=== PATIENT | male | born 1995 | race Two or more races ===

== ENCOUNTER 2025-04-24 16:48 | Emergency (ER) | payer OTHER, SELFPAY ==
[2025-04-24 17:00] VITALS: BP 163/95; PULSE 87; RESP 18; TEMP 36.9; O2SAT 97; BMI 40.8
--- NOTE | 2025-04-24 17:03 | XR_ITS ---
EXAMINATION: Lumbar spine 3 views TECHNIQUE: AP lateral: Lateral lower lumbar spine 3 views Date and time: April 24, 2025, 1723 hours INDICATIONS: Lifting injury to the lower back at work today with back pain. FINDINGS: Satisfactory alignment lumbar vertebral bodies No lumbar fracture Mild disc narrowing L5-S1 No spondylolisthesis IMPRESSION: No lumbar fracture Mild disc narrowing L5-S1
--- NOTE | 2025-04-24 17:04 | EDNOTE_ITS ---
ED Back Injury Pain RME/HPI General Chief Complaint: Back Pain/Injury Stated Complaint: LOWER BACK PAIN, WORK INJURY TODAY Time Seen by Provider: 04/24/25 17:02 Arrival date/time: 04/24/25 16:48 30-year-old male patient came in for evaluation regarding low back pain. Patient was working, picking up a box, and suddenly felt a snap in his back resulting in the pain, described as sharp pain, severity moderate. Patient denies any incontinence. Both bladder and bowel. Patient is ambulatory. Denies any weakness of bilateral lower extremities. Denies any similar episode in the past. No medication was taken prior to ER visit Related Data Previous Rx's ?Medication ?Instructions ?Recorded cephalexin 500 mg capsule (Keflex) 500 mg PO BID #14 c aps 11/02/19 ibuprofen 800 mg tablet 800 mg PO TID PRN pain #30 t abs 11/02/19 cyclobenzaprine 10 mg tablet 10 mg PO TID PRN muscle s pasm #30 04/24/25 tabs ibuprofen 800 mg tablet 800 mg PO TID PRN pain #30 t abs 04/24/25 ketorolac 10 mg tablet 10 mg PO Q8H PRN pain 5 days #20 04/24/25 tabs Allergies Allergy/AdvReac Type Severity Reaction Status Date / Time No Known Allergies Allergy Verified 04/24/25 16:50 Review of Systems Review of Systems Narrative Review of Systems: Review of system reviewed and within normal limits except mentioned in HPI ED Exam Narrative Physical exam: VITAL SIGNS: Reviewed. GENERAL APPEARANCE: Alert and interactive, follows commands, no acute distress, HEAD AND FACE: Non-traumatic. ENT: PERRL, pink conjunctivitis, eyelid no trauma, Mucous membrane moist. NECK: Supple, nontender, no nuchal rigidity. CHEST: No tenderness, no crepitus, no paradoxical movement, no retractions. LUNGS: Clear, well ventilated, symmetric, no rales, no wheezing, no ronchi, no stridor, good breath sounds bilaterally. HEART: Regular rate, regular rhythm, no murmur, no gallops. ABDOMEN: Soft, positive bowel sounds, nondistended, no guarding, nontender, no rebound, no masses, RECTAL: Deferred. GENITAL: Deferred. NEUROLOGICAL: Gross motor function intact sensory function intact, Appropriate for age. MUSCULOSKELETAL: low back tenderness, no midline tenderness, full range of motion. EXTREMITIES: Nontender, full range of motion. SKIN: Color pink, dry, no rash, no lacerations, no abrasions, no contusions. LYMPHATICS: Deferred. Course Quality Measures none Orders Category Date Time Status XR lumbar spine 2-3V Stat Exams 04/24/25 17:03 Completed CYCLObenzaPRINE [Flexeril] Med 04/24/25 17:03 Discontinued 10 mg PO X1 ONE Ketorolac Inj [Toradol Inj] Med 04/24/25 17:03 Discontinued 30 mg IM X1 ONE Vital Signs Vital signs: Vital Signs Temperature 98.5 F 04/24/25 17:00 Pulse Rate 87 04/24/25 17:00 Respiratory Rate 18 04/24/25 17:00 Blood Pressure 163/95 H 04/24/25 17:00 Pulse Oximetry (%) 97 04/24/25 17:00 Oxygen Delivery Method Room Air 04/24/25 17:00 Back Pain / Injury MDM Narrative MDM Narrative:: 30-year-old male patient came in for evaluation regarding low back pain. Patient was working, picking up a box, and suddenly felt a snap in his back re sulting in the pain, described as sharp pain, severity moderate. Patient denies any incontinence. Both bladder and bowel. Patient is ambulatory. Denies any weakness of bilateral lower extremities. Denies any similar episode in the past. No medication was taken prior to ER visit X-ray of the lumbar spine came back with no acute pathology except for mild disc narrowing L5-S1. Results discussed with the patient and family. Further imaging is not at this time patient is not showing any cauda equina syndrome. Patient is ambulatory. Patient data External records reviewed:: None Clinical information provided by:: none Social determinants that could affect healthcare access:: none Patient has the following chronic illnesses:: none How is presenting disease/condition affected by chronic disease/condition?: exacerbated by Evaluation data The following diagnostics were reviewed and interpreted by me:: radiology exam(s) Lab and/or radiology exams considered but not ordered:: none Interpretation Summary: See above Medications / Prescriptions Medications or Prescriptions considered but not ordered:: None Medication administrations:: Medication Administration History Discontinued Medications Cyclobenzaprine HCl (Cyclobenzaprine 5 Mg Tablet) 10 mg PO X1 ONE Stop: 04/24/25 17:04 Last Admin: 04/24/25 17:25 Dose: 10 mg Documented By: [facility] Ketorolac Tromethamine (Ketorolac Inj 30 Mg/Ml Vial) 30 mg IM X1 ONE Stop: 04/24/25 17:04 Last Admin: 04/24/25 17:26 Dose: 30 mg Documented By: [facility] Toradol Flexeril Consultations Consultation(s) initiated? (list below): No Diagnosis Differential diagnosis back pain/injury: sciatica and strain of lumbar region Most likely diagnosis given after review of the tests above:: Acute low back pain Admission Indicated Admission indicated?: not indicated Admission Request Was there a request for admission?: No Disposition Plan Disposition Plan: Discharge Discharge Attestation Discharge Attestation: The patient and all family members were given an opportunity to ask questions and understood the discharge instructions. Discharge instructions specifically effects, indications for sooner follow up or return to the emergency department, and the expected course of current diagnosis. Patient condition: Stable Discharge Plan Plan Patient Disposition: HOME (Self Care) Discharge Disposition comment: Stable Prescriptions/Referrals Prescriptions/Med Rec: New ketorolac 10 mg tablet 10 mg PO Q8H PRN (Reason: pain) 5 Days Qty: 20 0RF cyclobenzaprine 10 mg tablet 10 mg PO TID PRN (Reason: muscle spasm) Qty: 30 0RF ibuprofen 800 mg tablet 800 mg PO TID PRN (Reason: pain) Qty: 30 0RF No Action cephalexin [Keflex] 500 mg capsule 500 mg PO BID Qty: 14 0RF ibuprofen 800 mg tablet 800 mg PO TID PRN (Reason: pain) Qty: 30 0RF Referrals: No Primary/Family,Physician [Primary Care Provider] - In 1 week Problem List Clinical Impression: Acute low back pain Patient/Caregiver Discharge Instructions Discharge Activity: activity as tolerated Education Materials: ED Back Exercises, Lumbar Additional Instructions: Thank you for the opportunity for serving you today. You are stable for discharged . You are advised to: Follow-up with your Worker's Comp MDE in 1 to 2 days Return to ED for worsening of symptoms Increase oral fluids Take medication as prescribed Print Language: Frisian Stand Alone Forms: Tavia Award Info., Patient Portal Info Letter
[2025-04-24] MEDS: KETOROLAC INJ 30 MG/ML VIAL IM (17:26)
== END 2025-04-24 19:48 | disposition home or self-care (01) ==
PROVIDERS: Emergency Provider Family Medicine
DX: M54.50 Low back pain, unspecified (principal)
CPT/HCPCS: 72100; 96372; 99283; J1885; A9270